=== PATIENT | male | born 1965 | race Caucasian/White ===

== ENCOUNTER → 2022-07-20 | Outpatient (CLI) | payer OTHER ==
[~2022-07-20] MED LIST: ATOR10 PO; IRBE150 PO
[2022-07-20 10:37] LABS: BASOPHILS ABSOLUTE AUTO 0.01 K/mm3 (0.00-0.23); BASOPHILS PERCENT AUTO 0 % (0-2); EOSINOPHILS ABSOLUTE AUTO 0.02 K/mm3 (0.00-0.68); EOSINOPHILS PERCENT AUTO 0 % (0-6); Hematocrit 34.1 % (37.0-53.0); Hemoglobin 10.4 g/dL (13.5-17.5); IMMATURE GRAN ABSOLUTE AUTO 0.08 K/mm3 (0.00-0.10); IMMATURE GRAN PERCENT AUTO 1 % (0-1); LYMPHOCYTES ABSOLUTE AUTO 0.54 K/mm3 (0.84-5.20); LYMPHOCYTES PERCENT AUTO 4 % (21-46); MONOCYTES ABSOLUTE AUTO 0.58 K/mm3 (0.16-1.47); MONOCYTES PERCENT AUTO 4 % (4-13); Mean Corpuscular HGB 25.6 pg (26.0-34.0); Mean Corpuscular HGB Conc 30.5 g/dL (31.5-36.5); Mean Corpuscular Volume 84 fL (80-100); NEUTROPHILS ABSOLUTE AUTO 12.08 K/mm3 (1.96-9.15); NEUTROPHILS PERCENT AUTO 91 % (41-73); NRBC ABSOLUTE 0.02 K/mm3 (0.00-0.02); NRBC Auto 0.2 /100 WBC (0.0-0.2); Platelet Count 524 K/mm3 (150-400); RDW Coefficient Variation 20.7 % (11.7-14.2); RDW Standard Deviation 61.1 fL (35.1-46.3); Red Blood Cell Count 4.07 M/mm3 (4.30-5.90); White Blood Cell Count 13.31 K/mm3 (4.00-11.30)
[2022-07-20 10:57] LABS: International Normalized Ratio 1.08; Prothrombin Time Results 11.3 Sec (9.7-11.5)
[2022-07-20 11:28] LABS: Alanine Aminotransfer (ALT/SGP 15 U/L (12-78); Albumin, Blood 2.4 g/dL (3.4-5.0); Albumin/Globulin Ratio 0.4 (0.8-1.8); Alk Phos 118 U/L (50-136); Anion Gap 9 mmol/L (6-16); Aspartate Aminotrans (AST/SGOT 12 U/L (12-37); Bilirubin, Total <0.1 mg/dL (0.1-1.0); Blood Urea Nitrogen 17 mg/dL (8-24); Bun/Creatinine Ratio 20.5 (12.0-20.0); CO2, Blood 24 mmol/L (21-32); Calcium, Blood 9.6 mg/dL (8.5-10.1); Chloride, Blood 102 mmol/L (98-108); Creatinine, Blood 0.83 mg/dL (0.60-1.20); Globulin, Blood 5.9 g/dL (2.2-4.0); Glomerular Filtration Rate 101 (60-); Glucose, Blood 222 mg/dL (70-99); Potassium, Blood 3.9 mmol/L (3.5-5.5); Sodium, Blood 135 mmol/L (136-145); Total Protein, Blood 8.3 g/dL (6.4-8.2)
== END ==
LOC: LAB SHORT 10:12 → LAB 10:12
PROVIDERS: Physician Assistant
DX: E11.9 Type 2 diabetes mellitus without complications (principal); I10 Essential (primary) hypertension; J90 Pleural effusion, not elsewhere classified; Z85.71 Personal history of Hodgkin lymphoma
CPT/HCPCS: 36415; 80053; 83036; 85025; 85610; 85730

== ENCOUNTER 2022-09-13 19:24 | Inpatient (IN) | payer OTHER ==
[~2022-09-13] VITALS: Ht 172.7 cm; Wt 82.8 kg
[~2022-09-13 19:24] MED LIST changes: +BENZ100A PO; +DECADRON4 M2 PO; +FAMO20 PO; +FOLI1 PO; +HYDCHL25 PO; +MELATONIN5 M1 PO; +METOPROLOL SUCC25 MG PO; +ONDA4 PO; +OXYC10ER PO; +TRAZ50 PO; +XARELTO20 MG PO
[2022-09-13 20:17] LABS: BASOPHILS ABSOLUTE AUTO 0.02 K/mm3 (0.00-0.23); BASOPHILS PERCENT AUTO 0 % (0-2); EOSINOPHILS ABSOLUTE AUTO 0.04 K/mm3 (0.00-0.68); EOSINOPHILS PERCENT AUTO 0 % (0-6); Hematocrit 29.7 % (37.0-53.0); Hemoglobin 9.4 g/dL (13.5-17.5); IMMATURE GRAN ABSOLUTE AUTO 0.09 K/mm3 (0.00-0.10); IMMATURE GRAN PERCENT AUTO 1 % (0-1); LYMPHOCYTES ABSOLUTE AUTO 0.54 K/mm3 (0.84-5.20); LYMPHOCYTES PERCENT AUTO 4 % (21-46); MONOCYTES PERCENT AUTO 9 % (4-13); Mean Corpuscular HGB 25.6 pg (26.0-34.0); Mean Corpuscular HGB Conc 31.6 g/dL (31.5-36.5); Mean Corpuscular Volume 81 fL (80-100); Mean Platelet Volume 11.3 fL (9.1-12.4); NEUTROPHILS ABSOLUTE AUTO 12.86 K/mm3 (1.96-9.15); NEUTROPHILS PERCENT AUTO 86 % (41-73); NRBC ABSOLUTE 0.04 K/mm3 (0.00-0.02); NRBC Auto 0.3 /100 WBC (0.0-0.2); Platelet Count 214 K/mm3 (150-400); RDW Coefficient Variation 18.6 % (11.7-14.2); RDW Standard Deviation 53.7 fL (35.1-46.3); Red Blood Cell Count 3.67 M/mm3 (4.30-5.90); White Blood Cell Count 14.95 K/mm3 (4.00-11.30)
[2022-09-13 20:38] LABS: Albumin/Globulin Ratio 0.4 (0.8-1.8); Bilirubin, Total 0.3 mg/dL (0.1-1.0); Bun/Creatinine Ratio 26.1 (12.0-20.0); Calcium, Blood 9.2 mg/dL (8.5-10.1); Creatinine, Blood 1.15 mg/dL (0.60-1.20); Globulin, Blood 5.6 g/dL (2.2-4.0); Potassium, Blood 4.1 mmol/L (3.5-5.5); Total Protein, Blood 7.6 g/dL (6.4-8.2)
[2022-09-13 23:27] LABS: PCO2 Arterial 43.5 mmHg (35-45); PO2 Arterial 77.3 mmHg (80-100); pH Blood Arterial 7.48 (7.35-7.45)
[2022-09-14] VITALS (42 sets, daily range): BP systolic 70–159; BP diastolic 11–148
[2022-09-14 03:41] LABS: Anti-Xa UFH, PHA Monitoring <0.10 IU/mL; International Normalized Ratio 1.22; Prothrombin Time Results 12.7 Sec (9.7-11.5)
--- NOTE | 2022-09-14 04:20 | NUR ---
PATIENT ARRIVED TO ICU 3 VIA GURNEY FROM ED. SITTING HIGH FOWLERS WITH RESP 30-40 USING ACCESSORY MUSCLES. AIRVO WITH MASK IN PLACE 60L FIO2 100% RT AT BEDSIDE. PATIENT TRANSFER TO ICU BED USING SLIDER SHEET AND PLACED ON ICU MONITORS.
[2022-09-14 05:43] LABS: BASOPHILS ABSOLUTE AUTO 0.02 K/mm3 (0.00-0.23); BASOPHILS PERCENT AUTO 0 % (0-2); EOSINOPHILS ABSOLUTE AUTO 0.01 K/mm3 (0.00-0.68); EOSINOPHILS PERCENT AUTO 0 % (0-6); Hematocrit 31.3 % (37.0-53.0); Hemoglobin 9.7 g/dL (13.5-17.5); IMMATURE GRAN ABSOLUTE AUTO 0.13 K/mm3 (0.00-0.10); IMMATURE GRAN PERCENT AUTO 1 % (0-1); LYMPHOCYTES ABSOLUTE AUTO 0.75 K/mm3 (0.84-5.20); LYMPHOCYTES PERCENT AUTO 4 % (21-46); MONOCYTES ABSOLUTE AUTO 1.82 K/mm3 (0.16-1.47); MONOCYTES PERCENT AUTO 11 % (4-13); Mean Corpuscular HGB 25.1 pg (26.0-34.0); Mean Corpuscular Volume 81 fL (80-100); Mean Platelet Volume 10.2 fL (9.1-12.4); NEUTROPHILS ABSOLUTE AUTO 14.59 K/mm3 (1.96-9.15); NEUTROPHILS PERCENT AUTO 84 % (41-73); NRBC ABSOLUTE 0.05 K/mm3 (0.00-0.02); NRBC Auto 0.3 /100 WBC (0.0-0.2); Platelet Count 201 K/mm3 (150-400); RDW Coefficient Variation 18.6 % (11.7-14.2); RDW Standard Deviation 53.5 fL (35.1-46.3); Red Blood Cell Count 3.86 M/mm3 (4.30-5.90); White Blood Cell Count 17.32 K/mm3 (4.00-11.30)
--- NOTE | 2022-09-14 06:37 | NUR ---
SUMMARY PATIENT EXTREMELY ANXIOUS AND SEVER AIR HUNGER, ATIVAN GIVEN AND DOCTOR KATELIN CALLED AND MORPHINE CHANGED TO IV DUE TO RISK FOR ASPIRATION DUE TO INCREASED WORK OF BREATHING. HEPARIN DRIP STARTED. NEEDING FREQUENT REMINDERS TO KEEP OXYGEN IN PLACE. PATIENTS AT BEDSIDE PROVIDING GREAT SUPPORT.
[2022-09-14 06:58] LABS: Albumin, Blood 2.2 g/dL (3.4-5.0); Albumin/Globulin Ratio 0.4 (0.8-1.8); Bilirubin, Total 0.2 mg/dL (0.1-1.0); Bun/Creatinine Ratio 25.4 (12.0-20.0); Calcium, Blood 9.6 mg/dL (8.5-10.1); Creatinine, Blood 1.22 mg/dL (0.60-1.20); Globulin, Blood 5.8 g/dL (2.2-4.0)
--- NOTE | 2022-09-14 07:43 | NUR ---
0730 ASSUMED CARE ASSUMED CARE OF PATIENT THIS AM. HE IS RESTING RR 26 ON HIGH FLOW NASAL CANULA [id number]% SAO2 AT 97%. HE IS LAYING TOWARD LEFT SIDE FOR COMFORT. SPOUSE STATED HE HAD AN UNRESTED NIGHT. PATIENT IS ON HEPARIN DRIP AT 18U/KG/HR TO LEFT HAND 20G IV. RIGHT AC IV SALINE LOCKED. PATIENT'S LUNG SOUNDS ARE CLEAR WITH A GRUNT ON THE END OF EXHALATION, CLEARER LEFT LOBES THAN RIGHT HOWEVER. PATIENT HAS A DISTENDED ABD YET SOFT TO PALPATION. EDEMA TO LE BILATERALLY 2+. PPP X 4 EXTREMETIES. NO ACUTE PAIN AT THIS TIME. AT BEDSIDE FOR SHIFT REPORT AND SISTER EXCHANGED PLACES WITH SPOUSE EARLY THIS AM. PATIENT IS A SINUS RHYTHM ON MONITOR VS OTHER SNOW STABLE. CALLED DR TORRES WITH [facility]. AND ECHO IS ORDERED FOR TODAY. WILL CONTINUE CARE DIRECTED. PLAN IS DO BLADDER SCAN DUE TO PATIENT NOT VOIDING SINCE ADMITTION.
--- NOTE | 2022-09-14 11:00 | NUR ---
"Spiritual Care Visit | Nurse request Pt. is exihibiting somnolence. Both Pts. spouse and sister are present. Facilitated a short life review, and was updated on Pts. diagnosis. Family welcomed prayer for both them and the Pt. Prayed for family. Spouse ans sister verbalize gratitude for the spiritual care visit, and welcome this mail technician to return."
--- NOTE | 2022-09-14 11:14 | NUR ---
UPDATE 1100 PATIENT HAS NEEDED MORPHINE 2 MG TWICE AND ATIVAN 1MG ONCE FOR AGGRESSIVE COUGHING AND GETTING WORKED UP AND ANXIOUS AND SHORT OF BREATH. DR TORRES IN ROOM UPDATING FAMILY ON TREATMENT PLAN AND OPTIONS OF CARE DUE TO RESULTS FROM ECHO AND CT. DR LUCAS WAS CONSULTED AND WILL SEE FAMILY SHORTLY. PATIENT IS CALMER AFTER MEDICATION GIVEN. PT REMAINS ON 60L 100% FIO2 ON HHF NC. RT MARNIE GALLARDO UPDATED ON TREATMENT PLAN OF CARE. WILL CONTINUE TO MONITOR AND MANAGE PAIN/SOB/AND AIR HUNGER. FAMILY CONCERNED FOR PATIENT AND DID HAVE PRAYER FROM ABRIL MEADOWS IN [employer] AND SAW ELLA Jackson FROM PALLIATIVE CARE.
--- NOTE | 2022-09-14 12:35 | NUR ---
NOON UPDATE PATIENT REST WELL WITH MORPINE AND ATIVAN GIVEN. HOWEVER HE WAS WOKEN TO TALK WITH DR LUCAS AND STARTED COUGHING AGGRESSIVELY AND HARSHLY. HE WAS ALREADY GIVEN TESSALON PEARLS TOO. HE WAS NOW GIVEN A BREATHING TREATMENT BY RT VIA DR LUCAS VERBAL ORDER. PATIENT IS ALSO HAVING EXP WHEEZES T/O ALL LOBES. PATIENTS FAMILY; , SISTER AND DAUGHTER IS AT BEDSIDE DISCUSSING TREATMENT PLANS WITH DR LUCAS.
--- NOTE | 2022-09-14 13:53 | NUR ---
Pt is a 56 year old man with stage IV lung cancer. After chart review, speaking to ICU team and pt's family, it became clear that both pt's and sister (sister is RN) understand the gravity of the situation, and would wish for no heroic measures. However, the pt has continued to want full treatment, including Full Code status. The pt was asleep during the visit, and both and sister were tearful, and I spent the majority of the visit actively listening. I let them know Palliative Care will remain available to them t/o the hospital stay. Plan to continue meeting with family and pt.
--- NOTE | 2022-09-14 16:13 | NUR ---
1600 UPDATE RANDALL Beckwith RN TAKING OVER CARE FOR THIS EVENINGS CARE. PATIENT HAS BEEN RESTING COMFORTABLY THIS AFTERNOON FROM 1400 ON. FAMILY HAS BEEN IN AND OUT OF THE ROOM. ANTIBIOTICS STARTED. NO ACUTE CHANGES AT THIS TIME.
--- NOTE | 2022-09-14 16:40 | NUR ---
ASSUMPTION OF CARE ASSUMED CARE OF PATIENT. FAMILY AT BEDSIDE. PATIENT GIVEN PRN MORPHINE AND ATIVAN FOR ANXIETY AND DIFFICULTY BREATHING WITH COUGHING ATTACK. HEPARIN INFUSING AT 18 UNITS/ KG/ HOUR. PATIENT A AND O X 4. LUNGS COARSE. PATIENT ON BIPAP 10/6 AND 80% FIO2. PATIENT IN ST. BP STABLE. BED LOW, CALL LIGHT IN REACH. WILL CONTINUE TO MONITOR.
--- NOTE | 2022-09-14 19:20 | NUR ---
SHIFT SUMMARY PATIENT PLACED ON PRECEDEX DRIP LATE THIS AFTERNOON TO HELP WITH ANXIETY RELATED TO FEELING SHORT OF BREATH. PATIENT BEING GIVEN PRN MORPHINE AND ATIVAN TO HELP WITH AIR HUNGER AND ANXIETY. PRECEDEX DRIP CURRENTLY AT 0.4 MCG/ KG/ HOUR. PATIENT REMAINED ALERT AND ORIENTED. PATIENT ON BIPAP 10/ 6 AND 65% FIO2. PATIENT SR TO ST AND OCCASIONALLY A.FIB, HR 80S TO 180S. SBP 70S TO 150S. PATIENT VOIDED OT THIS SHIFT AROUND 1100 PER REPORT. PATIENT BLADDER SCANNED AT END OF SHIFT AND SHOWED 118 MLS IN BLADDER. HEPARIN DRIP AT 18 UNITS/ KG/ HOUR. FAMILY HAS BEEN IN ROOM MOST OF THE DAY. BED LOW, CALL LIGHT IN REACH. REPORT HAS BEEN GIVEN TO ASSUMING PROPERTY DISPOSAL MANAGER NURSE.
--- NOTE | 2022-09-14 21:59 | NUR ---
PATIENT SLEEPING WITH BIPAP 10/6 FIO2 65% IN PLACE. PATIENT RESP 40'S. SEDATED WITH PRECEDEX 0.4 INFUSING. HEPARIN 18 UNITS CONTINUES PER PHARMACY. PATIENT TRANSFER TO ICU [address] AND RT AT BEDSIDE. PATIENT TONA TRANSFER WELL. FAMILY AT BEDSIDE PROVIDING GOOD SUPPORT. PATIENT PREMEDICATED WITH MORPHINE FOR REPOSITIONING. PATIENT BECOMING ANXIOUS AFTER REPOSITIONING TO HIS LEFT SIDE. CALMING WITH FAMILY AND NURSING STAFF REASSURANCE. PRECEDEX AND BIPAP CONTINUE
[2022-09-15] VITALS (30 sets, daily range): BP systolic 85–107; BP diastolic 65–87
[2022-09-15 04:05] LABS: Hematocrit 28.5 % (37.0-53.0); Hemoglobin 8.7 g/dL (13.5-17.5); Mean Corpuscular HGB Conc 30.5 g/dL (31.5-36.5); Mean Corpuscular Volume 82 fL (80-100); Mean Platelet Volume 11.2 fL (9.1-12.4); NRBC ABSOLUTE 0.07 K/mm3 (0.00-0.02); NRBC Auto 0.5 /100 WBC (0.0-0.2); Platelet Count 263 K/mm3 (150-400); RDW Coefficient Variation 18.8 % (11.7-14.2); RDW Standard Deviation 54.4 fL (35.1-46.3); Red Blood Cell Count 3.48 M/mm3 (4.30-5.90); White Blood Cell Count 13.47 K/mm3 (4.00-11.30)
[2022-09-15 04:48] LABS: Bun/Creatinine Ratio 31.9 (12.0-20.0); Calcium, Blood 9.2 mg/dL (8.5-10.1); Creatinine, Blood 1.16 mg/dL (0.60-1.20); Phosphorus, Blood 4.3 mg/dL (2.5-4.9); Potassium, Blood 4.5 mmol/L (3.5-5.5)
--- NOTE | 2022-09-15 06:57 | NUR ---
SUMMARY PATIENT SLEEPING WITH BIPAP 12/24 FIO2 55% IN PLACE WITH SHORT BREAK FOR SIPS OF WATER. RESP 30-50 T/O NIGHT. PRECEDEX, MORPHINE, AND ATIVAN GIVEN NEEDED FOR ANXIETY AND AIR HUNGER. HEPARIN DRIP CONTINUES PER PHARMACY. FAMILY AT BEDSIDE PROVIDING GOOD SUPPORT. NO URINE DURING THE NIGHT, DENIES URGE TO VOID. SISTER [place]O WANTING TO WAIT FOR BLADDER SCAN DUE TO THE LAST 2 SCAN SHOWING SMALL AMT OF URINE
--- NOTE | 2022-09-15 07:00 | NUR ---
ASSUMPTION OF CARE BEDSIDE REPORT RECEIVED FROM NASRIN LOPEZ. PT IS RECEIVING PRECEDEX 0.4MCG/KG/HR AND HEPARIN 18UNITS/KG/HR. HEPARIN DOSE VERIFIED. PT IS ON BIPAP 10/6 WITH FIO2 55%. RR 30S. L LUNG CLEAR, UNABLE TO AUSCULTATE LUNG SOUNDS ON R SIDE. NSR ON MONITOR WITH RATE IN 70S. MAP >65. SISTER AT BEDSIDE. SEE SHIFT ASSESSMENT.
--- NOTE | 2022-09-15 11:53 | NUR ---
UPDATE/CODE STATUS DR LUCAS AND THIS RN AT BEDSIDE WITH SPOUSE, TOMAS. DISCUSSION REGARDING LIMITED CODE STATUS ALONG WITH GOALS AND OUTCOMES. TOMAS STS THEY DISCUSSED INVASIVE PROCEDURES AND FURTHER TREATMENTS AND DECIDED AGAINST THORACENTESIS. PT RECEIVING PRN MEDICATIONS PER EMAR FOR PAIN AND ANXIETY WITH GOAL OF MAINTAINING COMFORT. PT TRANSITIONED TO DNR AND COMFORT CARE. HEPARIN GTT DISCONTINUED. PLAN TO REMAIN ON BIPAP FOR NOW.
--- NOTE | 2022-09-15 12:41 | NUR ---
Pt and elected comfort care today. Updated POLST filled out, and medication orders being placed via verbal order of Dr. Solorio.
--- NOTE | 2022-09-15 14:43 | NUR ---
TIME OF PT HAS FAMILY AT BEDSIDE AND REPORTS PT IS ANXIOUS. PT MEDICATED MULTIPLE TIMES PER EMAR. HE REMAINS TACHYPNEIC WITH RR 30S-40S WITH BIPAP IN PLACE. HR 130S-160S. PT SITTING ON EDGE OF BED WITH SUPPORTING. RT NOTIFIED AND MEDICATION PULLED FOR INH MORPHINE. RT AT BEDSIDE WITH THIS RN PREPARING UPDRAFT. PT BEGINS TO LEAN BACK AND ASSISTED BACK IN BED. RESPIRATORY RATE RAPIDLY DECLINES, PT BEGINS TO HAVE UPWARD GAZE. UNABLE TO PALPATE CAROTID PULSE, UNABLE TO AUSCULTATE HEART SOUNDS. TIME OF 14:43. AND [id number] AT BEDSIDE. PALLIATIVE CARE AND HEAD WRESTLING COACH NOTIFIED AND AT BEDSIDE FOR FAMILY SUPPORT. SISTER NOTIFIED VIA TELEPHONE.
--- NOTE | 2022-09-15 16:10 | NUR ---
"Spiritual Care | EOL support ([facility]) TOD 14:43. This cna was called to offer family support. and other family are present. Prayed with family. Assited Palliative Care nurse who communicated with family who are in the hallway and monitored their visitation. Nursing staff gave emotional support through fingerprint rememberances. Pts. sister (a hospital employee) arrived. Emotional support is given. Facilitated a life review. Family is currently waiting for the Pts. daughter to arrive. The family has chosen [facility] as their home. Family verbalized gratitude for the spiritual care visit. Will remain avialable to the family."
== END 2022-09-15 14:43 | DRG 175 ==
LOC: ER 19:24 → ICUE 09-14 01:42
PROVIDERS: Emergency Medicine; Family Medicine; Internal Medicine Critical Care Medicine; Student in an Organized Health Care Education/Training Program; ADMIT Internal Medicine
PROC: 4A033R1 Measurement of Arterial Saturation, Peripheral, Percutaneous Approach (ICD-10-PCS; 2022-09-13)
PROC: 5A0935A Assistance with Respiratory Ventilation, Less than 24 Consecutive Hours, High Flow/Velocity Cannula (ICD-10-PCS; principal; 2022-09-14)
PROC: 5A09357 Assistance with Respiratory Ventilation, Less than 24 Consecutive Hours, Continuous Positive Airway Pressure (ICD-10-PCS; 2022-09-14)
DX: I26.93 Single subsegmental thrombotic pulmonary embolism without acute cor pulmonale (principal); I21.9 Acute myocardial infarction, unspecified; J18.9 Pneumonia, unspecified organism; J96.21 Acute and chronic respiratory failure with hypoxia; I48.92 Unspecified atrial flutter; C34.31 Malignant neoplasm of lower lobe, right bronchus or lung; J91.0 Malignant pleural effusion; E87.1 Hypo-osmolality and hyponatremia; C79.89 Secondary malignant neoplasm of other specified sites; Z51.5 Encounter for palliative care; Z66 Do not resuscitate; F41.0 Panic disorder [episodic paroxysmal anxiety]; I48.0 Paroxysmal atrial fibrillation; I10 Essential (primary) hypertension; D63.8 Anemia in other chronic diseases classified elsewhere; E78.5 Hyperlipidemia, unspecified; Z88.8 Allergy status to other drugs, medicaments and biological substances; Z79.891 Long term (current) use of opiate analgesic; Z79.02 Long term (current) use of antithrombotics/antiplatelets; Z79.01 Long term (current) use of anticoagulants; Z79.899 Other long term (current) drug therapy; Z85.71 Personal history of Hodgkin lymphoma; Z98.890 Other specified postprocedural states
CPT/HCPCS: 36415; 36600; 71046; 71260; 80048; 80053; 82803; 83605; 83880; 84100; 84145; 84484; 85025; 85027; 85520; 85610; 85730; 93005; 93010; 93308; 93321; 94640; 94660; 94664; 94762; 96374; 96375; 99285-25; A9270; J0692; J1644; J2060; J2270; J3370; J7050; Q9967